=== PATIENT | male | born 1960 | race Caucasian/White ===

== ENCOUNTER → 2021-11-02 13:40 | Outpatient (CLI) | payer BC, SELFPAY ==
--- NOTE | ~2021-11-02 | CT_ITS ---
EXAMINATION: CT lung screening DATE: 11/02/2021 13:53 INDICATION: Personal history of nicotine dependence, current smoker with 40 pack year history TECHNIQUE: Computed tomography (CT) of the chest was performed without intravenous contrast. The dose -length product (DLP) was 88.07 mGy-cm. Automated exposure control and iterative reconstruction techn [employer] were employed. COMPARISON: None FINDINGS: There is mild emphysema. No suspicious pulmonary nodules are identified. The lungs are free of acute opacities. No pleural effusion or pneumothorax. No pathologically enlarged thoracic lymph n odes are identified. The heart size is normal. Calcified coronary artery atherosclerosis is noted. Th ere is mild bilateral gynecomastia. The liver is diffusely low in attenuation when compared with the spleen, consistent with hepatic steatosis. IMPRESSION: 1. Lung-RADS category 1: Negative. Continue annual screening with noncontrast low-dose chest CT in 12 months. Reviewed, dictated and finalized at location F. IMPRESSION: 1. Lung-RADS category 1: Negative. Continue annual screening with noncontrast l ow-dose chest CT in 12 months.
== END ==
PROVIDERS: PCP Family Medicine; Visit Provider Family Medicine
DX: Z12.2 Encounter for screening for malignant neoplasm of respiratory organs (principal); F17.210 Nicotine dependence, cigarettes, uncomplicated
CPT/HCPCS: 71271

== ENCOUNTER 2021-11-26 12:35 | Outpatient (CLI) | payer BC, SELFPAY ==
--- NOTE | 2021-11-26 12:39 | ECHO_ITS ---
Patient Info Name: Ebenezer Jimenez Age: 61 years : 1960 Gender: Male Ht: 70 in Wt: 170 lbs BSA: 1.96 m2 HR: 83 bpm BP: 139 / 95 mmHg Technical Quality: Fair Exam Date: 11/26/2021 1:39 PM Exam Location: [facility] Patient Status: Outpatient Admit Date: 11/26/2021 Staff Ordering Physician: Barak Cifuentes MD Fluid Dynamicist: Donnell Brewer, ANDER, RT Attending Provider: Barak Cifuentes MD Exam Type: CA echo doppler color flow Study Info Indications R01.1 - Cardiac murmur, unspecified Complete two-dimensional, color flow and Doppler transthoracic echocardiogram is performed. Strain analysis performed. Summary 1. Complete two-dimensional, color flow and Doppler transthoracic echocardiogram is performed. 2. Left ventricular chamber dimension is normal. 3. Left ventricular systolic function is normal, estimated at 65-70%. 4. There is mildly increased left ventricular wall thickness. 5. The left ventricular diastolic function is grade I diastolic dysfunction. 6. E/e' 6 is not elevated. 7. Global longitudinal strain is normal at -17.9%. 8. The aortic valve is not well visualized. Cannot determine number of aortic valve leaflets. 9. There is mild aortic valve stenosis based on a peak velocity of 204 cm/s, mean gradient of 9 mmHg, and aortic valve area of 1.7 cm2. Left Ventricle E/e' 6 is not elevated. Global longitudinal strain is normal at -17.9%. Left ventricular chamber dimension is normal. Left ventricular systolic function is normal, estimated at 65-70%. There is mildly increased left ventricular wall thickness. The left ventricular diastolic function is grade I diastolic dysfunction. Right Ventricle Right ventricular systolic function is normal and with normal TAPSE 1.8 cm. Right ventricular chamber dimension is normal. Left Atria Left atrial chamber dimension is normal. Right Atria Right atrial chamber dimension is normal. Aortic Valve The aortic valve is not well visualized. Cannot determine number of aortic valve leaflets. There is mild aortic valve stenosis based on a peak velocity of 204 cm/s, mean gradient of 9 mmHg, and aortic valve area of 1.7 cm2. There is no aortic valve regurgitation. Pulmonic Valve There is no pulmonic regurgitation. Mitral Valve There is no mitral valve stenosis. There is no mitral valve regurgitation. Tricuspid Valve There is no tricuspid valve regurgitation. Pericardium/Pleural There is no pericardial effusion. Inferior Vena Cava Normal inferior vena cava with >50% collapse upon inspiration consistent with normal right atrial pressure, 5 mmHg. Aorta The aortic root size at the sinus of Valsalva is not well visualized. Left Ventricular Outflow Tract Name Value Normal LVOT 2D LVOT Diameter 2.0 cm LVOT Doppler LVOT Peak Gradient 5 mmHg LVOT Mean Gradient 2 mmHg LVOT VTI 18 cm LVOT VTI/AV VTI Ratio 0.5 LVOT Stroke Volume 60 ml LVOT CO 4.8 l/min
== END 2021-11-26 12:36 | disposition home or self-care (01) ==
LOC: ANHCARD 12:37
PROVIDERS: PCP Family Medicine; Visit Provider Family Medicine
DX: I10 Essential (primary) hypertension (principal); R01.1 Cardiac murmur, unspecified; I35.0 Nonrheumatic aortic (valve) stenosis
CPT/HCPCS: 93306

== ENCOUNTER 2025-01-18 15:04 | Outpatient (CLI) | payer OTHER, SELFPAY ==
--- OUTSIDE RECORDS SUMMARY | 2025-01-18 16:30 | XMS_ITS | Clinical Summary ---
Author Organization [facility] [address] Address [address] [place] [id number] Care Team Providers Care Bakery And Deli Sales Manager Name Role Phone Kalina Cifuentes MD Primary Care Provider Allergies No known active allergies Medications amLODIPine (NORVASC) 10 mg tablet Take 1 tablet (10 mg total) by mouth daily 11/12/2023 Active lisinopril-hydro CHLOROthiazide (ZESTORETIC) 20-12.5 mg per tablet Take 1 tablet by mouth daily 11/12/2023 Active metoprolol XL (TOPROL-XL) 25 mg extended release tablet Take 1 tablet (25 mg total) by mouth daily 11/12/2023 Active ibuprofen 200 mg tab/cap Take 3 tablet/caps ule (600 mg total) by mouth every 6 (six) hours as needed for pain Active Active Problems No known active problems Medical History Medical History Date Comments Hypertension Social History Tobacco Use Types Packs/Day Years Used Date Smoking Tobacco: Every Day Cigarettes Tobacco Cessation:Ready to Q uit: Not Asked; Counseling Given: Not Answered Personal Safety Answer Date Recorded Getting School Help Needed Not on file 12/23 Sex and Gender Information Value Date Recorded Sex Assigned at Not on file Legal Sex Male 12:37 PM CDT Gender Identity Not on file Sexual Orientation Not on file Obstetrics History Last Filed Vital Signs Vital Sign Reading Time Taken Comments Blood Pressure 134/83 12/31/2023 8:59 AM CDT Pulse 79 12/31/2023 8:59 AM CDT Temperature 36.7 C (98.1 F) 12/24/2023 3:05 PM CDT Respiratory Rate 16 12/24/2023 3:05 PM CDT Oxygen Saturation 99% 12/24/2023 3:05 PM CDT Inhaled Oxygen Concentration - - Weight 83.9 kg (184 lb 14.4 oz) 12/31/2023 8:59 AM CDT Height 179.8 cm (5' 10.77) 12/31/2023 8:59 AM C DT Body Mass Index 25.96 12/31/2023 8:59 AM CDT Plan of Treatment Health Maintenance Due Date Last Done Comments Colon Cancer Screening-Colonoscopy 1960 Depression Screening 1960 Hepatitis C Screening 1960 Prostate Cancer Screening-PSA 1960 Hepatitis B Screening 07/30/1979 Regular Well Visit/Exam 18-64 07/30/1979 Pneumococcal vaccine <65 (1 of 2 - PCV) 1980 Zoster Vaccine (1 of 2) 07/30/2011 Influenza Vaccine (#1) 2025 DTaP/Tdap/Td Vaccine (3 - Td or Tdap) 12/08/202709/2017, 07/14/2012 Insurance [facility] Care Teams Bakery And Deli Sales Manager Relationship Specialty Start Date End Date Kalina Cifuentes MD [address] [place] [address] PCP - General Family Practice 12/24/23
--- OUTSIDE RECORDS SUMMARY | 2025-01-18 16:30 | XMS_ITS | Clinical Summary ---
Author Organization [facility] Address [address] [place] [address] Care Team Providers Care Diesel Engine I Pipe Fitter Name Role Phone Unavailable Primary Care Provider Unavailabl e Source Comments [facility],non-owned Affiliates and Associated Physician Practices is amultiple site organization consisting of ambulatory clinics and hospital sitesin [place], [place], [place] and [place]. This disclosure is being madepursuant to the Care Everywhere program and may not contain all information available regarding this patient. Last updated 18.[facility] Allergies No known active allergies Medications * Be aware that medications may not be up to date on this document. Alwaysverify current medications with the patient. ibuprofen (MOTRIN) 600 MG tablet Take 1 tablet by mouth every 6 hours as needed for Pain 20 tablet 12/07/2017 Active Immunizations Immunization Administration Dates Next Due TDAP (7yrs+) 12/07/2017 Social History Tobacco Use Types Packs/Day Years Used Date Smoking Tobacco: Every Day Cigarettes Smokeless Tobacco: Never Alcohol Use Standard Drinks/Week Comments Yes 0 (1 standard drink = 0.6 oz pur e alcohol) socailly Sex and Gender Information Value Date Recorded Sex Assigned at Not on file Legal Sex Male 5:12 PM CDT Gender Identity Not on file Sexual Orientation Not on file Last Filed Vital Signs Vital Sign Reading Time Taken Comments Blood Pressure 147/105 12/07/2017 5:24 PM CDT Pulse 112 12/07/2017 5:24 PM CDT Temperature 36.9 C (98.5 F) 12/07/2017 5:24 PM CDT Respiratory Rate 16 12/07/2017 5:24 PM CDT Oxygen Saturation 97% 12/07/2017 5:24 PM CDT Inhaled Oxygen Concentration - - Weight 74.8 kg (165 lb) 12/07/2017 5:24 PM CDT Height 177.8 cm (5' 10) 12/07/2017 5:24 PM CDT Body Mass Index 23.68 12/07/2017 5:24 PM CDT Plan of Treatment Health Maintenance Due Date Last Done Comments COLOGUARD (AGES 45-75) - COL ON CA SCREENING 1960 COLON MONITORING 1960 COLONOSCOPY - COLON CA SCREENING 1961 CT COLONOGRAPHY - COLON CA SCREENING 1960 Colorectal Cancer Screening 1960 FIT - COLON CA SCREENING 1960 FLEX SIG - COLON CA SCREENING 1960 LIPID TESTING 1960 HIV SCREENING 1976 HEPATITIS C SCREENING 07/25/1979 PNEUMOCOCCAL VACCINE 50+ (1 of 1 - PCV) 07/30/2011 ZOSTER VACCINE (1 of 2) 07/30/2011 DEPRESSION SCREENING 05/05/2024 COVID-19 VACCINE (1 - 2023-2 5 season) 2025 INFLUENZA VACCINE (#1) 2025 DTAP/TDAP/TD VACCINES (2 - T d or Tdap) 12/08/2027 12/07/2017 Respiratory Syncytial Virus (RSV) Vaccine Pt: or over 60 yrs (1 - 1-dose 75+ series) 2036 HEPATITIS B VACCINE Aged Out No longe r eligible based on patient's age to complete this topic HIB VACCINE Aged Out No longer eligi ble based on patient's age to complete this topic HPV VACCINE Aged Out No longer eligi ble based on patient's age to complete this topic MENINGOCOCCAL (Group B) VACC INE SHARED DECISION-MAKING Aged Out No longer eligibl e based on patient's age to complete this topic MENINGOCOCCAL GROUPS A/C/Y/W VACCINE Aged Out No longer eligible b ased on patient's age to complete this topic [place] [address] [place] [address] ANTH
[2025-01-18 19:40] LABS: Hematocrit 44.7 % (42.0-52.0); Hemoglobin 15.5 g/dL (14.0-18.0); Immature Granulocyte Percent A 0.2 % (0-0.5); Lymphocytes Absolute Auto 3.25 K/mm3 (0.9-3.2); Mean Corpuscular HGB Conc 34.7 g/dl (32-36); Mean Corpuscular Hemoglobin 35.1 pg (26-34); Mean Corpuscular Volume 101.4 fl (80-100); Nucleated Red Blood Cells Absolute Auto 0.000 K/mm3 (0.0-0.012); Nucleated Red Blood Cells Perc 0.0 % (0.0-0.2); Platelet Count Result 220 k/mm3 (150-375); Red Blood Count 4.41 M/mm3 (4.6-6.20); White Blood Count 8.2 K/mm3 (4.5-10.0)
[2025-01-18 19:42] LABS: Alanine Aminotransferase 83 U/L (6-50); Albumin Level 4.8 g/dL (3.5-5.1); Alkaline Phosphatase 71 U/L (38-126); Anion Gap 11 mmol/L (4-12); Aspartate Amino Transferase 73 U/L (17-59); Bilirubin,Total 0.5 mg/dL (0.2-1.3); Blood Urea Nitrogen 8 mg/dL (9-20); Calcium 9.8 mg/dL (8.4-10.2); Carbon Dioxide 23 mmol/L (22-30); Chloride 101 mmol/L (98-107); Cholesterol 206 mg/dL (0-200); Estimated Glomerular Filt Rate > 60; Glucose 108 mg/dL (65-110); HDL Direct 71 mg/dL; Potassium 4.0 mmol/L (3.4-5.0); Sodium 135 mmol/L (137-145); Total Protein 8.0 g/dL (6.3-8.2); Triglycerides 59 mg/dL (<150)
[2025-01-18 20:25] LABS: Hemoglobin A1C 5.9 % (<5.7)
[2025-01-18 20:49] LABS: Prostate Specific Antigen 0.1 ng/mL (< OR = 4.0)
== END 2025-01-18 15:05 | disposition home or self-care (01) ==
LOC: ANHGOSHLAB 15:04
PROVIDERS: PCP Nurse Practitioner Family; Visit Provider Nurse Practitioner Family
DX: Z12.5 Encounter for screening for malignant neoplasm of prostate (principal); I10 Essential (primary) hypertension; R73.03 Prediabetes; E55.9 Vitamin D deficiency, unspecified
CPT/HCPCS: 36415; 80053; 80061; 82306; 83036; 84153; 85025; G0103

== ENCOUNTER 2025-02-01 00:23 | Day surgery (SDC) | payer OTHER, SELFPAY ==
[2025-01-21 14:08] VITALS: BMI 28.1
--- OUTSIDE RECORDS SUMMARY | 2025-02-01 00:25 | XMS_ITS | Clinical Summary ---
Author Organization [facility] [address] Address [address] [place] [phone] Care Team Providers Care Circular Sawyer Helper Name Role Phone Kalina Cifuentes MD Primary [...] - Td or Tdap) 12/08/202709/2017, 07/14/2012 Insurance [facility] Care Teams Circular Sawyer Helper Relationship Specialty Start Date End Date Kalina Cifuentes MD [address] [address] PCP - General Family Practice 12/24/23
--- OUTSIDE RECORDS SUMMARY | 2025-02-01 00:25 | XMS_ITS | Clinical Summary ---
Author Organization [facility] Address [address] [place] [address] Care Team Providers Care Fitness Consultant Name Role Phone Unavailable Primary Care Provider Unavailabl e Source Comments [facility],non-owned Affiliates and Associated Physician Practices is amultiple site organization consisting of ambulatory clinics and hospital sitesin [place], [place], [place] and [place]. This disclosure is being madepursuant to the Care Everywhere program and may not contain all information available regarding this patient. Last updated 18.[facility] Allergies No known active allergies Medications * [...] to complete this topic [place] [address] [place] [address] AN[employer]
[2025-02-01 11:15] VITALS: BP 139/84; PULSE 115; RESP 18; TEMP 36.2; O2SAT 99
[2025-02-01] MEDS: LACTATED RINGERS 1,000 ML 150 ML IV CONT (11:23)
--- NOTE | 2025-02-01 11:23 | P.PNAN_ITS ---
Anes - Initial Pre Proc Eval Procedure: Operation Date: 02/01/25 12:30 Proposed Procedures p Screening Colonoscopy - Tai Sheffield MD Date/Time: 02/01/25 11:23 Surgeon: Tai Sheffield MD Pre Op Diagnosis: Personal history of colon polyps, unspecified Patient Data Age: 64 Gender: M Height: 1.78 m Weight: 84.6 kg Last Vital Signs Temp 97.1 F L 02/01/25 11:15 Pulse 115 H 02/01/25 11:15 Resp 18 02/01/25 11:15 BP 139/84 02/01/25 11:15 Pulse Ox 99 02/01/25 11:15 O2 Del Method Room Air 02/01/25 11:15 Allergies Allergy/AdvReac Type Severity Reaction Status Date / Time No Known Allergies Allergy Verified 02/01/25 11:12 Home Medications ?Medication ?Instructions ?Recorded ?Confirmed ?Type amlodipine 10 mg tablet 10 mg PO DAILY #90 tabs 01/0302/01/25 Rx lisinopril 20 1 tablet PO DAILY #90 tabs 0 01/18/25 02/01/25 Rx mg-hydrochlorothiazide 12.5 mg tablet metoprolol succinate 25 mg 25 mg PO DAILY #90 tabs 02/01/25 Rx tablet,extended release 24 hr sildenafil 50 mg tablet (Viagra) 50 mg PO DAILY PRN se xual activity 01/18/25 01/21/25 Rx #30 tabs triamcinolone acetonide 0.1 % 1 applic topical BID #45 3.6 grams 01/18/25 02/01/25 Rx topical cream Patient hx anesthesia problems: none Family hx anesthesia problems: none Results Review: All pre-operative results and documents have been reviewed as part of the pre- operative evaluation. [facility] Past Medical History Medical History Adult wellness visit Vitamin D deficiency Erectile dysfunction Dyslipidemia Essential (primary) hypertension GERD without esophagitis Prediabetes Surgical History Surgical History [place] teeth extracted (~1995) History of tonsillectomy (~1969) Family History Family History Father Diabetes mellitus Hypertension Carcinoma of colon Social History Social History Smoking packs per day: 1 Smoking cigarettes per day: 20.0 Years smoked: 45 Smoking pack-years: 45.00 Smoking status: Current every day smoker Tobacco type: cigarettes Second hand tobacco smoke exposure: Yes Alcohol intake: current Drinks per week: 40 Substance use: current Substance use type: marijuana Living arrangements: alone Occupation/Education: retired Gender identity (if verbalized by the patient): Male Spiritual care concerns: No Agree to blood products: Yes Anes - Eval Final PreProcedure Day of Procedure 02/01/25 11:23 Patient weight: normal Lungs: normal air movement Airway: Mallampati scale class II Neurological: alert and oriented Last oral intake: >/= 8 hours ASA classification: III Emergent: no Anesthetic plan: proceed Anesthesia type and monitoring: general GIVS and standard monitoring Results Review: All pre-operative results and documents have been reviewed as part of the pre- operative evaluation. HTN, smoker, 40 pack years, smoked at 10 am, ETOH use 5-6 mixed drinks/day. Informed Consent: The patient's anesthetic plan and its attendant risks and benefits were discussed with the patient/family/POA. Questions were solicited and answers prov ided to the satisfaction of the patient/family/POA.
--- NOTE | 2025-02-01 12:15 | PM.HPGS ---
History of Present Illness History of Present Illness Consent: Risks, benefits, and alternatives have been discussed and questions answered. Patient agrees to proceed with procedure. Chief complaint: Personal history of colon polyps, unspecified Narrative: Ebenezer Jimenez is a 64 year old male with colon polyp in 2019 Review of Systems Review of Systems: All systems reviewed & are unremarkable except as noted in HPI and below PMFSH Past Medical History Medical History (Updated 02/01/25 @ 12:15 by Tai Sheffield MD) Adenomatous colon polyp Adult wellness visit Vitamin D deficiency Erectile dysfunction Dyslipidemia Essential (primary) hypertension GERD without esophagitis Prediabetes Surgical History Surgical History [place] teeth extracted (~1995) History of tonsillectomy (~1969) Family History Family History Father Diabetes mellitus Hypertension Carcinoma of colon Social History Social History Smoking packs per day: 1 Smoking cigarettes per day: 20.0 Years smoked: 45 Smoking pack-years: 45.00 Smoking status: Current every day smoker Tobacco type: cigarettes Second hand tobacco smoke exposure: Yes Alcohol intake: current Drinks per week: 40 Substance use: current Substance use type: marijuana Living arrangements: alone Occupation/Education: retired Gender identity (if verbalized by the patient): Male Spiritual care concerns: No Agree to blood products: Yes Meds Home Medications and Allergies Home Medications ?Medication ?Instructions ?Recorded ?Confirmed ?Type amlodipine 10 mg tablet 10 mg PO DAILY #90 tabs 01/18/25 02/01/25 Rx lisinopril 20 1 tablet PO DAILY #90 tabs 01/18/25 02/01/25 Rx mg-hydrochlorothiazide 12.5 mg tablet metoprolol succinate 25 mg 25 mg PO DAILY #90 tabs 01/18/25 02/01/25 Rx tablet,extended release 24 hr sildenafil 50 mg tablet (Viagra) 50 mg PO DAILY PRN sexual activity 01/18/25 01/21/25 Rx #30 tabs triamcinolone acetonide 0.1 % 1 applic topical BID #453.6 grams 01/18/25 02/01/25 Rx topical cream Allergies Allergy/AdvReac Type Severity Reaction Status Date / Time No Known Allergies Allergy Verified 02/01/25 11:12 Vital Signs Vital Signs - 24 hr 02/01/25 11:15 Temperature 97.1 F L Pulse Rate 115 H Respiratory Rate 18 Blood Pressure 139/84 Pulse Oximetry 99 Oxygen Delivery Room Air Exam Const: General: comfortable and no acute distress HENMT: Face/Nose/Sinus: Normal nares present Eyes: General: appearance normal, both eyes and all related structures Resp: Auscultation: clear to auscultation bilaterally Cardio: Rate: regular rate Rhythm: regular rhythm GI: Inspection: non-distended GI Palp: Yes Soft to palpation Skin: General skin exam: normal color Neuro: Speech: normal speech Extrem: General: normal to inspection Psych: Mental Status: mental status grossly normal Assessment and Plan Assessment and plan (1) Adenomatous colon polyp: Code(s): D12.6 - Benign neoplasm of colon, unspecified Status: Acute Assessment and Plan: colonoscopy
--- NOTE | 2025-02-01 12:29 | S_PTH ---
PATIENT: Ebenezer Jimenez LOC: [facility]#:[id number] AGE/SX: 64/M ROOM: RE02/01/[address]: Tai Sheffield MD : 1960 BED: DIS: 02/01/2025 SPEC #: [id number] RECD: 02/01/25 12:35 STATUS: JUNIE REIvet #: [id number] WISAM: 02/01/25 12:[address]: Tai Sheffield DEPT: [facility] Surgical RECD BY: Celso Spaulding ENTERED: 02/01/25 12:36 SP TYPE: Surgical OTHR DR: Meli Romeo, CLEMENCIA Tissues: A - Colon Polypectomy Procedures: Hematoxylin and Eosin Stain Gross and Microscopic Level 4
[2025-02-01 12:31] VITALS: BP 118/74; PULSE 97; RESP 20; O2SAT 99
[2025-02-01 12:41] VITALS: BP 132/92; PULSE 89; RESP 22; O2SAT 100
[2025-02-01 12:51] VITALS: BP 137/81; PULSE 90; RESP 19; O2SAT 100
== END 2025-02-01 12:57 | disposition home or self-care (01) ==
PROVIDERS: PCP Nurse Practitioner Family; Referring Provider Nurse Practitioner Family; Visit Provider Internal Medicine Gastroenterology
PROC: 0DJD8ZZ Inspection of Lower Intestinal Tract, Via Natural or Artificial Opening Endoscopic (ICD-10-PCS; CPT 45378; principal; 2025-02-01 12:30)
DX: Z12.11 Encounter for screening for malignant neoplasm of colon (principal); K63.5 Polyp of colon; K64.8 Other hemorrhoids; K57.30 Diverticulosis of large intestine without perforation or abscess without bleeding; E78.5 Hyperlipidemia, unspecified; I10 Essential (primary) hypertension; K21.9 Gastro-esophageal reflux disease without esophagitis; R73.03 Prediabetes; E55.9 Vitamin D deficiency, unspecified; N52.9 Male erectile dysfunction, unspecified; F17.210 Nicotine dependence, cigarettes, uncomplicated; F12.90 Cannabis use, unspecified, uncomplicated; Z98.890 Other specified postprocedural states; Z80.0 Family history of malignant neoplasm of digestive organs
CPT/HCPCS: 45385; 88305; J2003; J2704; J7120